=== PATIENT | female | born 1955 | race Caucasian/White ===

== ENCOUNTER 2019-04-08 18:21 | Inpatient (IN) ==
[2019-04-08] MEDS ORDERED: METOCLOPRAMIDE HCL 5 MG/ML VIAL IV ONE (18:41)
[2019-04-08] MEDS ORDERED: NORMAL SALINE 1,000 ML IV ONE (18:41)
[2019-04-08] MEDS ORDERED: MORPHINE SULFATE 4 MG/ML SYRG IV ONE (18:43)
[2019-04-08] MEDS ORDERED: HYDROmorphone HCL 1 MG/ML DISP.SYRIN IV ONE (19:03)
[2019-04-08 19:18] LABS: Hematocrit 27.7 % (37.0-47.0); Hemoglobin 9.4 gm/dL (12.5-16.0); Mean Cell Volume 87.4 fl (78-100); Mean Corpuscular Hemoglobin 29.7 pg (27-31); Mean Corpuscular Hgb Conc 33.9 g/dl (32-36); Mean Platelet Volume 7.8 fl (8-12.5); Neutrophil # 5.4 K/mm3 (1.3-6.0); Neutrophil % 76.6 % (42-75.0); Platelet Count 379 K/mm3 (150-450); Red Blood Count 3.17 M/mm3 (4.2-5.4); White Blood Count 7.1 K/mm3 (4.0-10.5)
--- NOTE | 2019-04-08 19:18 | ERNOTE ---
Abdominal HPI - Narrative Date of Service: 04/08/19 - General Chief Complaint: Abdominal Pain Time Seen by Provider: 04/08/19 18:34 Source: patient, family, RN notes reviewed Exam Limitations: no limitations - Immun/Allergies/Home Medications Immunizatons: IMMUNIZATION HX Immunizations Up to Date No History of Influenza Vaccine No Hx Pneumococcal Vaccination No Allergies/Adverse Reactions: Allergies meloxicam Allergy (Verified 10/08/15 09:16) codeine Adverse Reaction (Mild, Verified 04/08/19 18:43) Vomiting Home Medications: HOME MEDICATIONS Levothyroxine Sodium [Synthroid] 88 mcg PO DAILY 10/08/15 [Last Taken Unknown] Ondansetron [Zofran Odt] 4 mg PO Q6H PRN 04/08/19 [Last Taken Unknown] Prochlorperazine Maleate [Compazine] 10 mg PO QID PRN 04/08/19 [Last Taken Unknown] - History of Present Illness Narrative: Madhavi is a 63 year old female brought to the ED by her for abdominal pain. This began this morning. She has ovarian cancer and is on chemotherapy. She believes her pain is due to constipation caused by the Zofran she had been taking for nausea. She took a laxative this morning and passed a few small, hard pieces of stool. She has not been vomiting but has had very little oral intake. Timing: constant Quality: severe, cramping Activities at Onset: none Associated Symptoms: Present: nausea. Absent: back pain, fever/chills, vomiting Prior Abdominal Problems: Present: similar symptoms Prior Treatment: Absent: recently seen Review of Systems - Review of Systems Constitutional: Present: malaise. Absent: fever, chills EYE: Present: no symptoms reported ENT: Present: no symptoms reported Respiratory: Absent: shortness of breath, cough Cardiology: Absent: chest pain, syncope Gastrointestinal/Abdominal: Present: nausea, constipation, abdominal pain, eating less, drinking less. Absent: vomiting, diarrhea Genitourinary: Present: decreased urinary output. Absent: dysuria Musculoskeletal: Absent: muscle pain, joint pain Skin: Absent: rash, lesions Neurological: Absent: headache, dizziness/light-headedness Endocrine: Present: no symptoms reported Hematologic/Lymphatic: Absent: easy bruising, easy bleeding Psych: Present: no symptoms reported Medical History (Last Reviewed 04/08/19 @ 21:52 by Ana Arita NP) Ovarian cancer Surgical History: Surgical History (Last Reviewed 04/08/19 @ 21:52 by Ana Arita NP) Hx of hysterectomy Hx of thyroidectomy Social History: (Last Reviewed 04/08/19 @ 21:52 by Ana Arita NP) Social History: adopted: No lives independently: Yes household members: spouse number of children: 2 caregiver/support person: Yes parent marital status: Tobacco: Smoking Status: Never smoker Alcohol: alcohol intake: never Physical Exam - Physical Exam General Appearance: Present: alert, moderate distress, thin Head Exam: Present: normal inspection Eye Exam: Normal inspection: bilateral Respiratory: Present: no respiratory distress, normal breath sounds, no accessory muscle use, lungs clear Cardiovascular/Chest: Present: regular rate, rhythm, no murmur, normal peripheral pulses Gastrointestinal/Abdominal: Present: normal bowel sounds, soft, tenderness - diffuse, moderate, distended - bloated appearing. Absent: mass Back Exam: Present: normal inspection, normal range of motion, no vertebral tenderness Extremity Exam: Present: normal inspection, normal range of motion Neurological Exam: Present: alert, oriented, normal mood/affect, no motor/sensory deficits Skin Exam: Present: warm/dry, pallor Progress - Results and Orders Patient's Lab Results:: I have reviewed the patient's lab results. - Vital Signs Patient's Vital Signs:: I have reviewed the patient's vital signs. Vital Signs: Vital Signs 04/08/19 18:26 Temperature 36.3 C Pulse Rate 90 Respiratory Rate 20 Blood Pressure 161/84 H O2 Sat by Pulse Oximetry 98 - X-Ray X-Ray #1 X-Ray: abdomen Interpretation: Interp. by me X-ray Comments: Stool retention noted with large amounts of gas, no air in rectum, suspicious for obstruction - Progress/Reassessment Chief Complaint: Abdominal Pain Progress:: Improved - Transfer of Care Physician Sign Out: Ana Arita Receiving Physician: Aaliyah Tirado Pending Results: CT/MRI results Expected Disposition: Admit Departure Clinical Impression: Abdominal pain Qualifiers: Abdominal location: generalized Qualified Code(s): R10.84 - Generalized abdominal pain - Departure Disposition: Still a patient Condition: Fair Referrals: Shahrzad Ramirez MD [Primary Care Provider] -
[2019-04-08 19:30] LABS: Anion Gap 13.3 mmol/L (6.8-13.8); BUN/Creatinine Ratio 28.2 (9.0-21.6); Bilirubin, Total 0.3 mg/dL (0.0-1.1); Calcium * 8.5 mg/dL (7.9-10.9); Carbon Dioxide 25.6 mmol/L (24-32.6); Potassium 3.9 mmol/L (3.4-4.6); Total Protein 7.2 gm/dL (6.2-8.2)
[2019-04-08] MEDS ORDERED: ONDANSETRON HCL/PF 2 MG/ML VIAL IV ONE (19:59)
[2019-04-08] MEDS ORDERED: DIATRIZOATE MEGLUMINE, SODIUM 30 ML BTL PO ONE (20:26)
--- NOTE | 2019-04-08 23:35 | ERNOTE ---
Abdominal HPI - Narrative Date of Service: 04/08/19 - General Chief Complaint: Abdominal Pain Time Seen by Provider: 04/08/19 18:34 Source: patient, family - Immun/Allergies/Home Medications Immunizatons: IMMUNIZATION HX Immunizations Up to Date No History of Influenza Vaccine No Hx Pneumococcal Vaccination No Allergies/Adverse Reactions: Allergies meloxicam Allergy (Verified 10/08/15 09:16) codeine Adverse Reaction (Mild, Verified 04/08/19 18:43) Vomiting Home Medications: HOME MEDICATIONS Levothyroxine Sodium [Synthroid] 88 mcg PO DAILY 10/08/15 [Last Taken Unknown] Ondansetron [Zofran Odt] 4 mg PO Q6H PRN 04/08/19 [Last Taken Unknown] Prochlorperazine Maleate [Compazine] 10 mg PO QID PRN 04/08/19 [Last Taken Unknown] - History of Present Illness Narrative: assumed pt care at 11pm. pt has had morphine and dilauded for pain. reports improved pain control at this point. she states however, that she is worried that it will come back since it has been unrelenting. she is not yet passing gas and has not had any bms. Timing: getting worse, intermittent Review of Systems - Narrative Narrative: see original note ros Medical History (Last Reviewed 04/08/19 @ 21:52 by Ana Arita NP) Ovarian cancer Surgical History: Surgical History (Last Reviewed 04/08/19 @ 21:52 by Ana Arita NP) Hx of hysterectomy Hx of thyroidectomy Social History: (Last Reviewed 04/08/19 @ 21:52 by Ana Arita NP) Social History: adopted: No lives independently: Yes household members: spouse number of children: 2 caregiver/support person: Yes parent marital status: Tobacco: Smoking Status: Never smoker Alcohol: alcohol intake: never Progress - Results and Orders Patient's Lab Results:: I have reviewed the patient's lab results. Results and Orders: Laboratory Tests 04/08/19 04/08/19 19:10 19:10 WBC 7.1 Hgb 9.4 L Hct 27.7 L Plt Count 379 Sodium 129 L Potassium 3.9 Chloride 94 L BUN 22 Creatinine 0.78 AST 29 ALT 16 L Alkaline Phosphatase 301 H - Vital Signs Patient's Vital Signs:: I have reviewed the patient's vital signs. Vital Signs: Vital Signs 04/08/19 18:26 04/08/19 19:14 04/08/19 19:28 Temperature 36.3 C Pulse Rate 90 88 84 Respiratory Rate 20 16 16 Blood Pressure 161/84 H 146/78 154/81 H O2 Sat by Pulse Oximetry 98 94 98 04/08/19 19:43 04/08/19 20:22 04/08/19 20:58 Temperature Pulse Rate 87 90 82 Respiratory Rate 16 16 18 Blood Pressure 149/75 162/62 H 152/77 H O2 Sat by Pulse Oximetry 100 96 98 04/08/19 21:18 04/08/19 22:37 04/08/19 23:09 Temperature Pulse Rate 84 84 82 Respiratory Rate 18 18 18 Blood Pressure 151/78 H 152/83 H 147/79 O2 Sat by Pulse Oximetry 97 98 98 - Progress/Reassessment Chief Complaint: Abdominal Pain Progress:: Improved Progress Note-Subjective: 04/08/19 23:32 Had long discussion with general surgeon on-call, Dr. Kaufman due to some of the findings on the CT scan. He felt reassured that this was not a surgical issue, he did look at the films himself and was quite alarmed at the amount of stool present. 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 The white blood cell count is also normal. I then spoke with hospitalist on-call, Dr. Miller. We discussed that the patient is requiring pain medication, primary diagnosis is intractable abdominal pain, severe constipation and ileus. She does not have findings consistent with a bowel obstruction. I recommended that she be admitted for observation and treatment of the constipation and pain. He agreed. He did recommend that enemas be started tonight. He also okayed additional pain medication if needed. I discussed this with the patient and her . Patient is admitted. Orders placed Departure Clinical Impression: Constipation, Obstipation Abdominal pain Qualifiers: Abdominal location: generalized Qualified Code(s): R10.84 - Generalized abdominal pain - Departure Disposition: Still a patient Condition: Fair Referrals: Shahrzad Ramirez MD [Primary Care Provider] -
[2019-04-09] MEDS ORDERED: ONDANSETRON HCL/PF 2 MG/ML VIAL IV PRN (06:39)
[2019-04-09] MEDS ORDERED: BISACODYL 10 MG SUPP.RECT RC ONE (08:44)
--- NOTE | 2019-04-09 08:46 | HP ---
Chief Complaint - Chief Complaint Date of Service: 04/09/19 Time of Service: 08:46 Chief Complaint: abdominal pain History of Present Illness: 63-year-old female with history of ovarian cancer, currently receiving chemotherapy, presented to the ER with intractable abdominal pain with nausea and vomiting. States she has had a bowel movement 5 days. X-ray of her belly showed her to have some dilated small loops of bowel with significant colonic stool retention. CT scan of the belly was negative for bowel obstruction, patient is passing gas. Patient not currently taking any pain medication for her cancer. Patient was admitted for intractable abdominal pain with nausea. Placed under observation. Her vital signs been stable. Labs showed her to be slightly hyponatremic at 129 but otherwise she had a normal white count with no shift. She is also slightly anemic with a hemoglobin of 9.4 and a hematocrit of 27.7. Patient is fairly uncomfortable due to bloating but her belly is not rigid and not sharply painful. Her vital signs are stable and she is afebrile. Medical History (Last Reviewed 04/09/19 @ 00:24 by Tanya Payan RN) Ovarian cancer Surgical History: Surgical History (Last Reviewed 04/09/19 @ 00:24 by Tanya Payan RN) Hx of hysterectomy Hx of thyroidectomy Family History: Family History (Last Updated 04/09/19 @ 00:25 by Tanya Payan RN) Father Hypertension Sister Melanoma Social History: (Last Updated 04/09/19 @ 00:25 by Tanya Payan RN) Social History: adopted: No lives independently: Yes household members: spouse number of children: 2 caregiver/support person: Yes parent marital status: Highest education level completed: some college, no degree Tobacco: Smoking Status: Never smoker Alcohol: alcohol intake: never Substance Use: substance use type: does not use Review Of Systems (GEN) - Review of Systems Generalized/Overall Review: Absent: Weakness, Chills, Fever EENTM: Present: No Symptoms Reported Respiratory: Absent: Cough, Shortness of Breath Cardiac: Absent: Chest Pain, Edema Abdominal: Present: Nausea, Abdominal Pain, Constipation. Absent: Vomiting, Hematemesis, Diarrhea, Melena Genitourinary: Present: No Symptoms Reported Musculoskeletal: Present: No Symptoms Reported Neurological: Present: No Symptoms Reported Skin: Present: No Symptoms Reported Endocrine: Present: No Symptoms Reported Immunizations: IMMUNIZATION HX Immunizations Up to Date No History of Influenza Vaccine No Hx Pneumococcal Vaccination No Allergies/Adverse Reactions: Allergies Allergy/AdvReac Type Severity Reaction Status Date / Time meloxicam Allergy Verified 04/09/19 00:25 codeine AdvReac Mild Vomiting Verified 04/09/19 00:25 Home Medications: HOME MEDICATIONS Levothyroxine Sodium [Synthroid] 100 mcg PO DAILY 04/09/19 [Last Taken Unknown] Exam - Exam Vital Signs: Vital Signs - Last Taken Temp 36.7 C 04/09/19 06:38 Pulse 89 04/09/19 06:38 Resp 20 04/09/19 06:38 BP 161/93 H 04/09/19 06:38 Pulse Ox 97 04/09/19 06:38 Constitutional: Present: Alert, Oriented x3, Cooperative, Mild distress - Abdominal pain ENT Exam: Present: hearing grossly normal, moist mucous membranes. Absent: nasal congestion, nasal drainage Eye Exam: bilateral eye: normal inspection, EOMI Neck: Present: non-tender, supple Back Exam: Present: no CVA tenderness, no vertebral tenderness Respiratory: Present: lungs clear, normal breath sounds Cardiovascular/Chest: Present: regular rate, rhythm, no murmur. Absent: edema Abdomen: Present: soft, tender - Right and left lower quadrant. Absent: guarding, rigidity, rebound tenderness Skin Exam: Present: normal color, warm/dry Neurologic: Present: alert, normal mood/affect, oriented x 3 Appearance: Present: appropriate appearance, appropriate insight Eye contact: Present: cooperative, good eye contact, normal speech Thoughts: Present: normal thought pattern, normal mood /affect Diagnostic Studies: Abnormal Lab Results 04/08/19 04/08/19 Range/Units 19:10 19:10 RBC 3.17 L (4.2-5.4) M/mm3 Hgb 9.4 L (12.5-16.0) gm/dL Hct 27.7 L (37.0-47.0) % MPV 7.8 L (8-12.5) fl Neutrophils % 76.6 H (42-75.0) % Lymphocytes % 12.7 L (20-51) % Monocytes % 9.5 H (0.0-9) % Lymphocytes # 0.90 L (1.5-3.5) k/mm3 Sodium 129 L (132-142) mmol/L Chloride 94 L (97-106) mmol/L BUN/Creatinine Ratio 28.2 H (9.0-21.6) Random Glucose 135 H (70-110) mg/dL ALT 16 L (19-67) U/L Alkaline Phosphatase 301 H (50-170) U/L Albumin 3.0 L (3.4-5.0) gm/dl Laboratory Results WBC 7.1 K/mm3 (4.0-10.5) 04/08/19 19:10 RBC 3.17 M/mm3 (4.2-5.4) L 04/08/19 19:10 Hgb 9.4 gm/dL (12.5-16.0) L 04/08/19 19:10 Hct 27.7 % (37.0-47.0) L 04/08/19 19:10 MCV 87.4 fl (78-100) 04/08/19 19:10 MCH 29.7 pg (27-31) 04/08/19 19:10 MCHC 33.9 g/dl (32-36) 04/08/19 19:10 RDW 14.0 % (11.5-14.0) 04/08/19 19:10 Plt Count 379 K/mm3 (150-450) 04/08/19 19:10 MPV 7.8 fl (8-12.5) L 04/08/19 19:10 Immature Gran % (Auto) 0.40 % (0.001-0.429) 04/08/19 19:10 Immature Gran # (Auto) 0.03 K/mm3 (0.000-0.0310) 04/08/19 19:10 Neutrophils % 76.6 % (42-75.0) H 04/08/19 19:10 Lymphocytes % 12.7 % (20-51) L 04/08/19 19:10 Monocytes % 9.5 % (0.0-9) H 04/08/19 19:10 Eosinophils % 0.4 % (0.0-3.0) 04/08/19 19:10 Basophils % 0.4 % (0.0-1.0) 04/08/19 19:10 Nucleated RBC % 0.0 k/mm3 (0-1) 04/08/19 19:10 Neutrophils # 5.4 K/mm3 (1.3-6.0) 04/08/19 19:10 Lymphocytes # 0.90 k/mm3 (1.5-3.5) L 04/08/19 19:10 Monocytes # 0.7 k/mm3 (0.0-1.0) 04/08/19 19:10 Eosinophils # 0.0 k/mm3 (0.0-0.7) 04/08/19 19:10 Absolute Basophils 0.0 k/mm3 (0.0-0.1) 04/08/19 19:10 Sodium 129 mmol/L (132-142) L 04/08/19 19:10 Plasma Sodium 130 mmol/L (130-142) 04/08/19 19:10 Potassium 3.9 mmol/L (3.4-4.6) 04/08/19 19:10 Chloride 94 mmol/L (97-106) L 04/08/19 19:10 Carbon Dioxide 25.6 mmol/L (24-32.6) 04/08/19 19:10 Anion Gap 13.3 mmol/L (6.8-13.8) 04/08/19 19:10 BUN 22 mg/dL (3-23) 04/08/19 19:10 Creatinine 0.78 mg/dL (0.4-1.4) 04/08/19 19:10 Est GFR (Non-Af Amer) 79 mL/min (60-130) D 04/08/19 19:10 BUN/Creatinine Ratio 28.2 (9.0-21.6) H 04/08/19 19:10 Random Glucose 135 mg/dL (70-110) H 04/08/19 19:10 Calcium 8.5 mg/dL (7.9-10.9) 04/08/19 19:10 Calcium Adj for Albumin 9.0 mg/dL (8.4-10.2) 04/08/19 19:10 Total Bilirubin 0.3 mg/dL (0.0-1.1) 04/08/19 19:10 AST 29 U/L (0-48) 04/08/19 19:10 ALT 16 U/L (19-67) L 04/08/19 19:10 Alkaline Phosphatase 301 U/L (50-170) H 04/08/19 19:10 Total Protein 7.2 gm/dL (6.2-8.2) 04/08/19 19:10 Albumin 3.0 gm/dl (3.4-5.0) L 04/08/19 19:10 Assessment/Plan - Narrative Narrative: 63-year-old female with history of ovarian cancer admitted to the floor under observation for constipation with abdominal pain. Patient nauseous and not tolerating p.o. intake. Currently receiving IV fluids which should help with her hyponatremia. Subset enemas ordered as well as CT Phenergan. Will order si methicone to help with some of her bloating. Restarted her levothyroxine for hypothyroidism. Patient has clear liquid diet ordered. No DVT prophylaxis needed at this time. Will encourage ambulation. Recheck lab work in the morning. Nurse will call with questions or concerns. - Assessment/Plan (1) History of ovarian cancer Problem: Acute (2) Abdominal pain Problem: Acute Qualifiers: Abdominal location: generalized Qualified Code(s): R10.84 - Generalized abdominal pain (3) Constipation Problem: Acute
[2019-04-09 09:32] LABS: Anion Gap 10.4 mmol/L (6.8-13.8); BUN/Creatinine Ratio 26.7 (9.0-21.6); Calcium * 8.8 mg/dL (7.9-10.9); Carbon Dioxide 28.4 mmol/L (24-32.6); Estimated Creat Clear 86.2; Potassium 3.8 mmol/L (3.4-4.6)
[2019-04-09] MEDS ORDERED: PROMETHAZINE HCL 12.5 MG SUPP.RECT RC ONE (09:36)
[2019-04-09] MEDS: NORMAL SALINE 1,000 ML IV SCH ×2 (11:23→22:30)
[2019-04-09] MEDS: LEVOTHYROXINE SODIUM 100 MCG TABLET PO SCH (16:39)
[2019-04-09] MEDS ORDERED: PROMETHAZINE HCL 25 MG SUPP.RECT RC ONE (20:03)
[2019-04-09] MEDS ORDERED: SIMETHICONE 80 MG TAB.CHEW PO ONE (20:14)
[2019-04-10] MEDS: SIMETHICONE 80 MG TAB.CHEW PO PRN ×2 (02:29→11:41)
[2019-04-10] MEDS: PROMETHAZINE HCL 25 MG SUPP.RECT RC PRN ×2 (02:30→09:01)
[2019-04-10 06:07] LABS: Anion Gap 11.4 mmol/L (6.8-13.8); BUN/Creatinine Ratio 36.4 (9.0-21.6); Calcium * 8.4 mg/dL (7.9-10.9); Carbon Dioxide 25.4 mmol/L (24-32.6); Estimated Creat Clear 78.4; Potassium 3.8 mmol/L (3.4-4.6)
[2019-04-10] MEDS: LEVOTHYROXINE SODIUM 100 MCG TABLET PO SCH (06:59)
[2019-04-10] MEDS: NORMAL SALINE 1,000 ML IV SCH ×2 (08:49→22:10)
--- NOTE | 2019-04-10 10:56 | PN ---
Subjective - Date and Time Seen Date: 04/10/19 Time: 10:56 Subjective Narrative: Patient continues to have abdominal pain despite bowel rest and multiple suppositories. Repeat abdominal x-ray shows worsening small bowel dilation compared to previous exam though the patient is passing gas and has had a few small bowel movements. Patient has mildly elevated blood pressures though likely due to pain from her belly. She is been afebrile and the rest of her vitals are stable. Objective - Review of Systems Generalized/Overall Review: Denies: Weakness, Chills, Fever EENTM: Reports: No Symptoms Reported Respiratory: Denies: Cough, Shortness of Breath Cardiac: Denies: Chest Pain, Edema, Palpitations Abdominal: Reports: Nausea, Abdominal Pain, Constipation - Improving. Denies: Vomiting Genitourinary Symptoms: Reports: No Symptoms Reported Musculoskeletal Complaints: Reports: No Symptoms Reported Neurological: Reports: No Symptoms Reported Skin: Reports: No Symptoms Reported Endocrine: Reports: No Symptoms Reported - Vitals Vitals: Last Vital Signs Temp 36.9 C 04/10/19 06:54 Pulse 95 04/10/19 06:54 Resp 16 04/10/19 06:54 BP 171/98 H 04/10/19 06:54 Pulse Ox 97 04/10/19 06:54 - Abnormal Lab Findings Abnormal Lab Findings: Abnormal Lab Results 04/10/19 Range/Units 05:55 Sodium 124 L (132-142) mmol/L Plasma Sodium 124 L (130-142) mmol/L Chloride 91 L (97-106) mmol/L BUN 24 H (3-23) mg/dL BUN/Creatinine Ratio 36.4 H (9.0-21.6) - Exam Constitutional: Present: Alert, Oriented x3, Cooperative ENT Exam: Present: hearing grossly normal. Absent: nasal congestion, nasal drainage Neck: Present: non-tender, supple Respiratory: Present: lungs clear, normal breath sounds Cardiovascular/Chest: Present: normal peripheral pulses, regular rate, rhythm, no murmur Abdomen: Present: soft, tender, guarding, hypoactive. Absent: rebound tenderness - 90 1 Skin Exam: Present: normal color, warm/dry - Exam no Appearance: Present: appropriate appearance, appropriate insight Thoughts: Present: normal thought pattern, normal mood /affect Assessment/Plan Plan Narrative: Patient is noticed tender in her abdomen is not as firm as it was a day prior fo llowing 2 loose stools. Patient is also starting to pass gas. Repeat x-ray though did show worsening dilated small loops of bowel. We will go ahead and insert in the nasogastric tube set to intermittent suction to help with this on the pressure from the top end. Continue normal saline. Patient now currently n.p.o. but she can have ice chips. We will see how she feels tomorrow, I think she is improving though from a clinical standpoint and I doubt will need a general surgery consult. If she does not show significant improvement tomorrow then will talk to Dr. Arguelles about her case. Hyponatremia is unchanged even with fluid restriction and normal saline. We will provide some salt tablets to be taken prior to NG tube use. Repeat BMP in the morning. Elevated blood pressure likely due to abdominal pain, patient does not have a history of hypertension. Will provide hydralazine 10 mg IV every 6 hours as needed with systolic greater than 160. Continue levothyroxine for hypothyroidism. SCDs now to be worn while in bed though encourage ambulation. Patient is in agreement treatment plan. Nurse to call questions or concerns. - Problems/Diagnosis (1) SBO (small bowel obstruction) Problem: Acute (2) Abdominal pain Problem: Acute Qualifiers: Abdominal location: generalized Qualified Code(s): R10.84 - Generalized abdominal pain (3) Constipation Problem: Acute (4) History of ovarian cancer Problem: Acute
[2019-04-10] MEDS: SODIUM CHLORIDE 1 GM TABLET PO SCH (11:41)
[2019-04-10] MEDS: HYDROmorphone HCL 1 MG/ML DISP.SYRIN IV PRN ×3 (11:49→20:07)
[2019-04-10] MEDS ORDERED: hydrALAZINE HCL 20 MG/ML VIAL IV PRN (12:21)
[2019-04-10] MEDS ORDERED: PHENOL 180 SPRAY BTL MM PRN (19:29)
[2019-04-10] MEDS: DEXTROSE 5%-NORMAL SALINE 1,000 ML IV PRN (19:35)
[2019-04-10] MEDS: hydrALAZINE HCL 20 MG/ML VIAL IV PRN (19:59)
[2019-04-11] MEDS: HYDROmorphone HCL 1 MG/ML DISP.SYRIN IV PRN ×3 (02:42→15:23)
[2019-04-11] MEDS: hydrALAZINE HCL 20 MG/ML VIAL IV PRN ×2 (02:43→11:01)
[2019-04-11] MEDS: DEXTROSE 5%-NORMAL SALINE 1,000 ML IV PRN (05:35)
[2019-04-11] MEDS: LEVOTHYROXINE SODIUM 100 MCG TABLET PO SCH (08:08)
[2019-04-11] MEDS: SODIUM CHLORIDE 1 GM TABLET PO SCH (08:08)
[2019-04-11] MEDS ORDERED: DIATRIZOATE MEGLUMINE, SODIUM 30 ML BTL NG ONE (08:26)
[2019-04-11 08:56] LABS: Anion Gap 11.2 mmol/L (6.8-13.8); BUN/Creatinine Ratio 47.1 (9.0-21.6); Calcium * 8.1 mg/dL (7.9-10.9); Estimated Creat Clear 101.4; Potassium 3.2 mmol/L (3.4-4.6)
[2019-04-11] MEDS: SIMETHICONE 80 MG TAB.CHEW PO PRN (13:34)
--- NOTE | 2019-04-11 16:27 | DS ---
Transfer Discharge Summary - Diagnosis(s)/Problems (1) SBO (small bowel obstruction) Problem: Acute (2) Abdominal pain Problem: Acute (3) Constipation Problem: Acute (4) History of ovarian cancer Problem: Acute - Course Description of Stay: 63-year-old female with history of ovarian cancer presented to the ER on 04/08/2019 for abdominal pain today, abdominal x-ray shows significant stool retention. Initial CT scan showed compressed appearance of the cecum in the right lower quadrant. Cecal torsion, or possible internal hernia could have this appearance. However, there is no resultant bowel obstruction. General surgery was consulted from the ER who thought that the pain was likely due to the impaction and she is admitted for observation with fluids and enemas. Patient had multiple bowel movements while here but abdominal pain did not resolve. Repeat KUB on 04/10/2019 showed worsening dilation of small loops of bowel more concerning for small bowel obstruction. NG tube was placed at that point and sit to intermittent suction. Patient had roughly 250 cc of gastric content removed over 12 hours. Pain continued to worsen. Repeat CT scan of her belly today showed IMPRESSION: 1. Interval development of findings suggestive of partial small bowel obstruction, with transition point in the right lower quadrant, with abnormal location and appearance of the ileocolic region mesenteric as above, concerning for possible internal hernia. 2. Interval development of mild ascites and free fluid in the pelvis. 3. Area of low density in the left hepatic lobe, somewhat nonspecific but concerning for possible localized area of edema versus potential hepatic metastatic disease versus possible infiltrating tumor such as cholangiocarcinoma and less likely hepatocellular carcinoma. 4. Low-density lesions of the body and tail of the pancreas, stable. Could represent volume averaging from adjacent fluid within the lesser sac versus possible pancreatic cystic neoplasm. 5. Left adrenal lesion concerning for metastatic disease. 6. Retroperitoneal lymphadenopathy with enlarged periaortic lymph nodes as above. Nonspecific edema/thickening of the left anterior pararenal fascia and edema adjacent to the left psoas muscle. Potential infiltrating neoplasm/metastatic disease cannot be entirely excluded and should be considered clinically. 7. Radiodensity within the gallbladder likely vicarious excretion of previously administered contrast material. Pericholecystic fluid is likely related to underlying ascites but clinical correlation for gallbladder pathology is still recommended. 8. Periportal edema versus mild intrahepatic ductal dilation. Again case was discussed with general surgery who Thought it best that she be transferred to a higher level of care facility, likely [facility] where she is getting her cancer treatment for ovarian cancer. Vital signs were stable while here though her blood pressure was slightly elevated at times and she was given as needed hydralazine for this. Otherwise she is been afebrile. Initial white count was 7.1. Rechecking this afternoon before discharge though this does not look like infectious in nature. Patient was accepted by the [facility] with Dr. Camejo of [facility] rn gynecology/onc. Procedures Performed: none - Results and Findings Results and Findings: Laboratory Results - last 24 hr 04/11/19 08:32 Sodium 129 L Plasma Sodium 129 L Potassium 3.2 L Chloride 94 L Carbon Dioxide 27.0 Anion Gap 11.2 BUN 24 H Creatinine 0.51 Est GFR (Non-Af Amer) 129 D BUN/Creatinine Ratio 47.1 H Random Glucose 129 H Calcium 8.1 - Medications Medications: Active Medications Hydralazine HCl (Apresoline) 10 mg IV Q4H PRN PRN Reason: Hypertension Stop: 05/10/19 12:22 Last Admin: 04/11/19 11:01 Dose: 10 mg Documented by: Hydromorphone HCl (Dilaudid) 0.5 mg IV Q4H PRN PRN Reason: Pain Stop: 05/08/19 23:39 Last Admin: 04/11/19 15:23 Dose: 0.5 mg Documented by: Levothyroxine Sodium (Synthroid) 100 mcg PO DAILY@0700 JACK Stop: 05/09/19 09:01 Last Admin: 04/11/19 08:08 Dose: 100 mcg Documented by: Ondansetron HCl (Zofran) 4 mg IV Q6H PRN PRN Reason: Nausea And Vomiting Stop: 05/09/19 06:40 Last Admin: 04/09/19 07:02 Dose: 4 mg Documented by: Phenol/Menthol (Chloraseptic) 1 spray MM PRN PRN PRN Reason: Sore Throat Stop: 05/10/19 19:30 Last Admin: 04/10/19 19:57 Dose: 1 spray Documented by: Promethazine HCl (Phenergan Suppository) 25 mg RC Q6H PRN PRN Reason: nausea/vomiting Stop: 05/10/19 01:56 Last Admin: 04/10/19 09:01 Dose: 25 mg Documented by: Simethicone (Mylicon Chewable Tablets) 80 mg PO Q6H PRN PRN Reason: Indigestion Stop: 05/10/19 01:55 Last Admin: 04/11/19 13:34 Dose: 80 mg Documented by: Sodium Chloride (Sodium Chloride) 1 gm PO DAILY JACK Stop: 05/10/19 11:01 Last Admin: 04/11/19 08:08 Dose: 1 gm Documented by: Discontinued Medications Bisacodyl (Dulcolax Suppository) 10 mg RC ONCE ONE Stop: 04/09/19 08:45 Last Admin: 04/09/19 09:56 Dose: 10 mg Documented by: Diatrizoate Meglum/Diatrizoate Sod (Gastrografin Solution) 60 ml PO ONCE ONE Stop: 04/08/19 20:27 Last Admin: 04/08/19 20:38 Dose: 60 ml Documented by: Diatrizoate Meglum/Diatrizoate Sod (Gastrografin Solution) 60 ml NG ONCE ONE Stop: 04/11/19 08:27 Last Admin: 04/11/19 08:43 Dose: 60 ml Documented by: Hydralazine HCl (Apresoline) 10 mg IV Q6H PRN PRN Reason: Hypertension Stop: 05/10/19 12:22 Last Admin: 04/10/19 15:20 Dose: 10 mg Documented by: Hydromorphone HCl (Dilaudid) 1 mg IV ONCE ONE Stop: 04/08/19 19:04 Last Admin: 04/08/19 19:06 Dose: 1 mg Documented by: Sodium Chloride (Sodium Chloride 0.9%) 1,000 mls @ 999 mls/hr IV .Q1H1M ONE Stop: 04/08/19 19:41 Last Infusion: 04/08/19 19:56 Dose: Infused Documented by: Sodium Chloride (Sodium Chloride 0.9%) 1,000 mls @ 100 mls/hr IV .Q10H JACK Stop: 05/09/19 10:46 Last Admin: 04/10/19 22:10 Dose: Not Given Documented by: Dextrose/Sodium Chloride (Dextrose 5%-0.9% Ns) 1,000 mls @ 100 mls/hr IV .Q10H PRN PRN Reason: HYDRATION Stop: 05/10/19 19:30 Last Infusion: 04/11/19 14:41 Dose: Infused Documented by: Metoclopramide HCl (Reglan) 10 mg IV ONCE ONE Stop: 04/08/19 18:42 Last Admin: 04/08/19 18:52 Dose: 10 mg Documented by: Morphine Sulfate (Morphine Sulfate) 4 mg IV ONCE ONE Stop: 04/08/19 18:44 Last Admin: 04/08/19 18:54 Dose: 4 mg Documented by: Ondansetron HCl (Zofran) 4 mg IV ONCE ONE Stop: 04/08/19 20:00 Last Admin: 04/08/19 20:01 Dose: 4 mg Documented by: Promethazine HCl (Phenergan Suppository) 12.5 mg RC ONCE ONE Stop: 04/09/19 09:37 Last Admin: 04/09/19 09:55 Dose: 12.5 mg Documented by: Promethazine HCl (Phenergan Suppository) 25 mg RC ONCE ONE Stop: 04/09/19 20:04 Last Admin: 04/09/19 20:45 Dose: 25 mg Documented by: Simethicone (Mylicon Chewable Tablets) 80 mg PO ONCE ONE Stop: 04/09/19 20:15 Last Admin: 04/09/19 20:45 Dose: 80 mg Documented by: - Disposition Disposition: Short Term Hospital Inpatient Condition: Serious Discharge Date: 04/11/19 Discharge Time: 16:27
[2019-04-11 16:29] LABS: Hematocrit 31.8 % (37.0-47.0); Mean Cell Volume 86.2 fl (78-100); Mean Corpuscular Hemoglobin 29.8 pg (27-31); Mean Corpuscular Hgb Conc 34.6 g/dl (32-36); Mean Platelet Volume 7.6 fl (8-12.5); Neutrophil # 4.4 K/mm3 (1.3-6.0); Neutrophil % 79.6 % (42-75.0); Platelet Count 456 K/mm3 (150-450); Red Blood Count 3.69 M/mm3 (4.2-5.4); Red Cell Distribution Width 14.4 % (11.5-14.0); White Blood Count 5.6 K/mm3 (4.0-10.5)
[2019-04-11 17:27] VITALS: BP 146/89
== END 2019-04-11 17:30 | disposition short-term general hospital (02) | DRG 389 ==
LOC: MS 18:21 → ER 18:21 → MS 04-09
PROVIDERS: ADMIT Family Medicine; ATTEND Family Medicine
CPT/HCPCS: 36415; 71010; 71045; 74000; 74018; 74019; 74020; 74177; 80048; 80053; 85025; 96361; 96374; 96375; 96376; 99285; G0378; J2405; Q9963; Q9967

== ENCOUNTER 2019-05-18 15:25 | Observation (INO) ==
[2019-05-18 16:19] LABS: Prothrombin Time (Patient) 11.4 Seconds (9.1-10.7)
[2019-05-18 16:20] LABS: INR 1.16 INR (0.92-1.08)
[2019-05-18] MEDS ORDERED: NORMAL SALINE 1,000 ML IV ONE (16:25)
[2019-05-18 16:41] LABS: Amylase * 84 U/L (25-115); Lipase 290 U/L (73-393)
[2019-05-18] MEDS ORDERED: cefTRIAXone SODIUM 1,000 MG/100 ML BAG IV ONE (17:36)
--- NOTE | 2019-05-18 18:13 | ERNOTE ---
Medical Problem HPI - Narrative Date of Service: 05/18/19 - General Chief Complaint: General Assessment Time Seen by Provider: 05/18/19 15:55 Source: patient, family, RN notes reviewed, old records Exam Limitations: no limitations - Immun/Allergies/Home Medications Immunizations: IMMUNIZATION HX Immunizations Up to Date Yes History of Influenza Vaccine No Hx Pneumococcal Vaccination No Allergies/Adverse Reactions: Allergies meloxicam Allergy (Verified 05/18/19 15:50) codeine Adverse Reaction (Mild, Verified 05/18/19 15:50) Vomiting Home Medications: HOME MEDICATIONS Levothyroxine Sodium [Synthroid] 100 mcg PO DAILY 04/09/19 [Last Taken Unknown] Azithromycin 250 mg PO DAILY 05/18/19 [Last Taken Unknown] Lisinopril [Prinivil] 5 mg PO DAILY 05/18/19 [Last Taken Unknown] - History of Present History Narrative: Madhavi is a 63 year old female brought to the ED by her for hyponatremia. She was contacted by her oncologist's office and informed that her sodium was 120 when it was checked earlier today and that she needed to come in to have this treated. She has also had a cough for the past couple of weeks. She was started on Zithromax yesterday. She is being treated for ovarian cancer. Her chemotherapy has been on hold for the past month while she is recovering from a bowel resection for an obstruction secondary to an internal hernia. This was done on 04/12/19 at [facility]. She was also found to have metastasis to her liver at that time. She has not felt well since her surgery. She has been having difficulty making herself eat and frequently has dry heaves. Her labs from earlier today also show a severe decline in her hepatic function. This has been normal until now. She was noted to be severely jaundiced in triage. Her had not noticed this but states he is color blind. Review of Systems - Review of Systems Constitutional: Present: recent illness, fatigue, malaise. Absent: fever, chills EYE: Present: no symptoms reported ENT: Absent: nose congestion, sore throat Respiratory: Present: shortness of breath, cough. Absent: wheezing Cardiology: Absent: chest pain, syncope Gastrointestinal/Abdominal: Present: nausea, eating less. Absent: vomiting, diarrhea, constipation, abdominal pain, drinking less Genitourinary: Present: other - dark urine. Absent: dysuria Musculoskeletal: Absent: muscle pain, joint pain Skin: Absent: rash, lesions Neurological: Absent: headache, dizziness/light-headedness Endocrine: Present: no symptoms reported Hematologic/Lymphatic: Absent: easy bruising, easy bleeding Psych: Present: no symptoms reported Medical History (Last Reviewed 05/18/19 @ 18:10 by Ana Arita NP) Ovarian cancer Surgical History: Surgical History (Last Reviewed 05/18/19 @ 18:10 by Ana Arita NP) Hx of hysterectomy Hx of thyroidectomy Family History: Family History (Last Reviewed 05/18/19 @ 18:10 by Ana Airta NP) Father Hypertension Sister Melanoma Social History: (Last Reviewed 05/18/19 @ 18:10 by Ana Arita NP) Social History: adopted: No lives independently: Yes household members: spouse number of children: 2 caregiver/support person: Yes parent marital status: Highest education level completed: some college, no degree Tobacco: Smoking Status: Never smoker Alcohol: alcohol intake: never Substance Use: substance use type: does not use Physical Exam - Physical Exam General Appearance: Present: alert, mild distress, thin Head Exam: Present: normal inspection Eye Exam: Scleral icterus: bilateral Ears, Nose, Throat: Present: normal ENT inspection, normal pharynx Neck: Present: normal inspection, nontender, supple, full range of motion Respiratory: Present: lungs clear, accessory muscle use - mild dyspnea while speaking, decreased breath sounds Cardiovascular/Chest: Present: no murmur, normal peripheral pulses, tachycardia Gastrointestinal/Abdominal: Present: nontender, nondistended, soft Extremity Exam: Present: normal inspection, non-tender, no edema Neurological Exam: Present: alert, oriented, normal mood/affect, no motor/sensory deficits Skin Exam: Present: warm/dry, jaundice Progress - Results and Orders Patient's Lab Results:: I have reviewed the patient's lab results. - Vital Signs Patient's Vital Signs:: I have reviewed the patient's vital signs. Vital Signs: Vital Signs 05/18/19 15:47 Temperature 36.5 C Pulse Rate 115 H Respiratory Rate 14 Blood Pressure 147/87 O2 Sat by Pulse Oximetry 98 - EKG EKG #1 EKG: paraoxymal atrial tachycardia, nonspecific ST T wave changes EKG read: Reviewed by me - X-Ray X-Ray #1 X-Ray: chest Interpretation: Interp. by me X-ray Comments: Questionable right lower lobe consolidation - Progress/Reassessment Chief Complaint: General Assessment Progress:: Unchanged Plan - Plan Plan: Admission initially discussed with Dr. Burgos. She recommended transfer d/t the patient's new liver impairment and cancer treatment. I contacted [facility] ER. They were unable to accept her for transfer at the present time due to bed availabil ity. Dr. Burgos then agreed to admit the patient for treatment of her hypernatremia and pneumonia. The patient is aware that there are not specialists available here to manage her cancer treatment or her hepatic impairment. She has had a liter of IV NS and a gram of IV Rocephin in the ED. Departure Clinical Impression: Acute hyponatremia Hepatic failure Qualifiers: Liver failure chronicity: acute Hepatic coma status: without hepatic coma Qualified Code(s): K72.00 - Acute and subacute hepatic failure without coma Pneumonia Qualifiers: Pneumonia type: due to unspecified organism Laterality: right Lung location: lower lobe of lung Qualified Code(s): J18.9 - Pneumonia, unspecified organism - Departure Disposition: Still a patient Condition: Serious
[2019-05-18] MEDS: NORMAL SALINE 1,000 ML IV PRN (19:38)
--- NOTE | 2019-05-18 20:37 | HP ---
Chief Complaint - Chief Complaint Date of Service: 05/18/19 Time of Service: 20:34 Chief Complaint: abnormal labs prior to chemo History of Present Illness: Patient has PMHx of clear cell ovarian cancer with metastasis, undergoing chemotherapy, recent SIADH, HTN, hypothyroidism. Her most recent treatment was in March. She developed a volvulus requiring surgical repair in April. She had labs drawn earlier today to see if chemo could be resumed tomorrow, but the labs showed hyponatremia with a sodium of 120, elevated alk phos of 3216, elevated transaminases to the 200's, hypoalbuminemia with an albumin of 2.0, proteinuria. Since coming home from surgery last month, she hasn't been able to regain her energy. She has had significant difficulty eating, and has been losing weight. Stools have been grayish in color. Her son thought her skin looked yellow, but she and her didn't notice. She developed a cough, sore throat, and congestion earlier this week, and her oncologist started her on azithromycin. She took her first dose yesterday. Medical History (Last Reviewed 05/18/19 @ 18:10 by Aan Arita NP) Ovarian cancer Surgical History: Surgical History (Last Reviewed 05/18/19 @ 18:10 by Ana Arita NP) Hx of hysterectomy Hx of thyroidectomy Family History: Family History (Last Reviewed 05/18/19 @ 18:10 by Ana Arita NP) Father Hypertension Sister Melanoma Social History: (Last Reviewed 05/18/19 @ 18:10 by Ana Arita NP) Social History: adopted: No lives independently: Yes household members: spouse number of children: 2 caregiver/support person: Yes parent marital status: Highest education level completed: some college, no degree Tobacco: Smoking Status: Never smoker Alcohol: alcohol intake: never Substance Use: substance use type: does not use Review Of Systems (GEN) - Review of Systems Generalized/Overall Review: Present: Weakness, Weight loss EENTM: Present: Throat Pain Respiratory: Present: Cough, Shortness of Breath Cardiac: Absent: Chest Pain, Edema Abdominal: Present: Other - pale stools. Absent: Vomiting, Abdominal Pain Genitourinary: Present: Other - dark urine Musculoskeletal: Present: No Symptoms Reported Neurological: Present: No Symptoms Reported Skin: Present: Other - son noticed yellow skin discoloration Immunizations: IMMUNIZATION HX Immunizations Up to Date Yes History of Influenza Vaccine No Hx Pneumococcal Vaccination No Allergies/Adverse Reactions: Allergies Allergy/AdvReac Type Severity Reaction Status Date / Time meloxicam Allergy Verified 05/18/19 15:50 codeine AdvReac Mild Vomiting Verified 05/18/19 15:50 Home Medications: HOME MEDICATIONS Levothyroxine Sodium [Synthroid] 100 mcg PO DAILY 04/09/19 [Last Taken Unknown] Azithromycin 250 mg PO DAILY 05/18/19 [Last Taken Unknown] Lisinopril [Prinivil] 5 mg PO DAILY 05/18/19 [Last Taken Unknown] Exam - Exam Vital Signs: Vital Signs - Last Taken Temp 37.3 C 05/18/19 19:47 Pulse 106 H 05/18/19 19:47 Resp 20 05/18/19 19:47 BP 148/83 05/18/19 19:47 Pulse Ox 99 05/18/19 19:47 Constitutional: Present: Alert, Oriented x3, Cooperative, Thin and frail Respiratory: Present: lungs clear, normal breath sounds Cardiovascular/Chest: Present: regular rate, rhythm - HR 100 Abdomen: Present: nontender, other - healing surgical incision, several bruises Extremity: Present: lower extremity edema - 1+ bilateral lower legs Skin Exam: Present: jaundice Eye contact: Present: cooperative Diagnostic Studies: Abnormal Lab Results 05/18/19 Range/Units 16:05 PT 11.4 H (9.1-10.7) Seconds INR (Anticoag Therapy) 1.16 H (0.92-1.08) INR Laboratory Results PT 11.4 Seconds (9.1-10.7) H 05/18/19 16:05 INR (Anticoag Therapy) 1.16 INR (0.92-1.08) H 05/18/19 16:05 Ammonia Less than 17.0 mcmol/L (11-35) 05/18/19 16:05 Amylase 84 U/L (25-115) 05/18/19 16:24 Lipase 290 U/L (73-393) 05/18/19 16:24 Assessment/Plan - Assessment/Plan (1) Acute hyponatremia Assessment: Sodium of 120. Her sodium level on DC from the [facility] was 126 on 04/29. SIADH was listed in her DC diagnoses. She reports being told to limit her water intake, and was given sodium tablets that she tried, but could not tolerate. Will administer NS overnight, and recheck in the morning. Problem: Acute (2) Hepatic failure Assessment: She had some biliary dilation on CT done last month. Elevated alk phos of 3219, AST of 206, ALT of 228, bilirubin of 9.1, and she is jaundiced on exam. Her platelets are elevated, and INR is 1.16. `Will call her oncologist tomorrow for recommendations regarding treatment. I suspect her cancer may have progressed to the point where recovery is not a reasonable option to expect. Problem: Acute Qualifiers: Liver failure chronicity: acute Hepatic coma status: without hepatic coma Qualified Code(s): K72.00 - Acute and subacute hepatic failure without coma (3) Ovarian cancer Assessment: Patient has a malignant neoplasm of her right ovary, clear cell, per [facility] records. She has bilateral pleural effusions, which were present last month per [facility] notes. She's been unable to have chemotherapy for approximately [address] done at the [facility] show progression of disease last month. She has been losing weight, and unable to maintain nutrition. Will check Mg and Phos in the morning. She developed lactose intolerance over the last few months. Will add clear Ensure to meals. Will call her oncologist in the morning for further recommendations. Problem: Acute (4) Metastasis Assessment: Notes from the [facility] state metastasis around the pancreas and wil hepatis. Problem: Acute (5) Jaundice Problem: Acute (6) Thrombocytosis Assessment: Possible secondary to liver metastasis. Problem: Acute (7) Hyperbilirubinemia Assessment: Bilirubin is 9.2, and was normal in April. Problem: Acute (8) Upper respiratory infection Assessment: WBC mildly elevated at 13.8. will continue her azithromycin, today is day #2 of 5. She was also given rocephin in the ED. If no improvement, will add cefdinir. Problem: Acute (9) History of endometrial cancer Problem: Acute (10) History of DVT (deep vein thrombosis) Assessment: She was anticoagulated with lovenox after her surgery, and reports having about 3 doses left. She'd like to stop taking it. She is aware she is at risk for clotting, with cancer and previous DVT. Problem: Chronic
[2019-05-19] MEDS: guaiFENesin/DEXTROMETHORPHAN SYRUP PO PRN ×3 (02:29→21:09)
[2019-05-19] MEDS: NORMAL SALINE 1,000 ML IV PRN ×3 (03:42→19:45)
[2019-05-19 06:33] LABS: Hematocrit 25.1 % (37.0-47.0); Hemoglobin 8.9 gm/dL (12.5-16.0); Mean Cell Volume 85.1 fl (78-100); Mean Corpuscular Hemoglobin 30.2 pg (27-31); Mean Corpuscular Hgb Conc 35.5 g/dl (32-36); Neutrophil % 81.7 % (42-75.0); Platelet Count 549 K/mm3 (150-450); Red Blood Count 2.95 M/mm3 (4.2-5.4); Red Cell Distribution Width 15.6 % (11.5-14.0); White Blood Count 12.2 K/mm3 (4.0-10.5)
[2019-05-19 06:55] LABS: Albumin * 1.7 gm/dl (3.4-5.0); Anion Gap 10.5 mmol/L (6.8-13.8); BUN/Creatinine Ratio 23.4 (9.0-21.6); Ca. Corrected For Albumin 8.9 mg/dL (8.4-10.2); Calcium * 7.4 mg/dL (7.9-10.9); Carbon Dioxide 25.2 mmol/L (24-32.6); Magnesium 1.5 mg/dL (1.2-2.8); Phosphorus 2.7 mg/dL (2.2-4.2); Potassium 3.7 mmol/L (3.4-4.6); Total Protein 5.7 gm/dL (6.2-8.2)
[2019-05-19] MEDS: AZITHROMYCIN 250 MG TABLET PO SCH (08:50)
[2019-05-19] MEDS ORDERED: LISINOPRIL 5 MG TABLET PO SCH (09:00)
--- NOTE | 2019-05-19 10:05 | PN ---
Subjective - Date and Time Seen Date: 05/19/19 Time: 09:44 Subjective Narrative: Patient seen while up eating breakfast. She reports having a cough overnight, which is helpful with cough medicine. Discussed her options. She would like to know what her oncologist's opinion is on her current situation. She feels like she is close to just wanting comfort cares. Objective - Vitals Vitals: Last Vital Signs Temp 37.0 C 05/19/19 06:24 Pulse 98 05/19/19 08:49 Resp 20 05/19/19 06:24 BP 152/85 H 05/19/19 08:49 Pulse Ox 97 05/19/19 06:24 - Abnormal Lab Findings Abnormal Lab Findings: Abnormal Lab Results 05/18/19 05/19/19 05/19/19 Range/Units 16:05 06:25 06:25 WBC 12.2 H (4.0-10.5) K/mm3 RBC 2.95 L (4.2-5.4) M/mm3 Hgb 8.9 L (12.5-16.0) gm/dL Hct 25.1 L (37.0-47.0) % RDW 15.6 H (11.5-14.0) % Plt Count 549 H (150-450) K/mm3 Immature Gran % (Auto) 2.00 H (0.001-0.429) % Immature Gran # (Auto) 0.25 H (0.000-0.0310) K/mm3 Neutrophils % 81.7 H (42-75.0) % Lymphocytes % 7.9 L (20-51) % Neutrophils # 10.0 H (1.3-6.0) K/mm3 Lymphocytes # 0.97 L (1.5-3.5) k/mm3 PT 11.4 H (9.1-10.7) Seconds INR (Anticoag Therapy) 1.16 H (0.92-1.08) INR Sodium 123 L (132-142) mmol/L Plasma Sodium 123 L (130-142) mmol/L Chloride 91 L (97-106) mmol/L Est GFR (Non-Af Amer) 142 H D (60-130) mL/min BUN/Creatinine Ratio 23.4 H (9.0-21.6) Calcium 7.4 L (7.9-10.9) mg/dL Total Bilirubin 8.0 H (0.0-1.1) mg/dL Direct Bilirubin (0.0-0.3) mg/dL AST 172 H (0-48) U/L ALT 186 H (19-67) U/L Alkaline Phosphatase 2946 H (50-170) U/L Total Protein 5.7 L (6.2-8.2) gm/dL Albumin 1.7 L (3.4-5.0) gm/dl 05/19/19 Range/Units 06:25 WBC (4.0-10.5) K/mm3 RBC (4.2-5.4) M/mm3 Hgb (12.5-16.0) gm/dL Hct (37.0-47.0) % RDW (11.5-14.0) % Plt Count (150-450) K/mm3 Immature Gran % (Auto) (0.001-0.429) % Immature Gran # (Auto) (0.000-0.0310) K/mm3 Neutrophils % (42-75.0) % Lymphocytes % (20-51) % Neutrophils # (1.3-6.0) K/mm3 Lymphocytes # (1.5-3.5) k/mm3 PT (9.1-10.7) Seconds INR (Anticoag Therapy) (0.92-1.08) INR Sodium (132-142) mmol/L Plasma Sodium (130-142) mmol/L Chloride (97-106) mmol/L Est GFR (Non-Af Amer) (60-130) mL/min BUN/Creatinine Ratio (9.0-21.6) Calcium (7.9-10.9) mg/dL Total Bilirubin (0.0-1.1) mg/dL Direct Bilirubin 7.6 H (0.0-0.3) mg/dL AST (0-48) U/L ALT (19-67) U/L Alkaline Phosphatase (50-170) U/L Total Protein (6.2-8.2) gm/dL Albumin (3.4-5.0) gm/dl Assessment/Plan - Problems/Diagnosis (1) Acute hyponatremia Problem: Acute Narrative: Sodium improved to 123 with normal saline overnight. Sodium was 120 yesterday. [facility] notes state possible SIADH. 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 She was unable to tolerate salt tablets. We will continue to replace with IV. Potential transfer to the [place] for cancer treatment later today. (2) Cholestasis Problem: Acute Narrative: She has elevated alk phos of 2946, elevated direct bilirubin of 7.6. Concern for biliary obstruction. When discussing her options with her, including potential ERCP or stent placement, she feels like this sounds similar to something she was told at the [place] last month. She has had pale stools and dark urine. GGT was high last month. Discussed with her oncologist, who feels like chemo is needed to improve her jaundice. Her INR is 1.16, and her platelets are elevated, so I do not believe she is in active liver failure. [facility] process to the [facility] started last night, but no beds are available. Recommend transfer for potential ERCP and cancer treatment. (3) Ovarian cancer Problem: Acute Narrative: Discussed with her oncologist, and she will need a different chemo regimen that she has been receiving. Has not received chemo since March due to abdominal surgery for volvulus. She has been losing weight, and unable to maintain p.o. nutrition. Briefly discussed potential PEG tube, which she would like to discuss with her . She states she has been dealing with this for over 3 years, and is very tired. She would like to talk with her oncologist, but she is aware that hospice is an option for her. (4) Metastasis Problem: Acute (5) Jaundice Problem: Acute (6) Thrombocytosis Problem: Acute (7) Hyperbilirubinemia Problem: Acute (8) Upper respiratory infection Problem: Acute Narrative: She was started on azithromycin the day prior to admission. Today is day 3. Cough medicine was also started last night. If she does not improve, will add cefdinir. She has been afebrile. (9) History of endometrial cancer Problem: Acute (10) History of DVT (deep vein thrombosis) Problem: Chronic Narrative: She was recently on Lovenox after her surgery. She declines continue treatment with Lovenox, but is aware she is at increased clot risk.
[2019-05-19] MEDS ORDERED: LISINOPRIL 5 MG TABLET PO ONE (13:15)
[2019-05-19] MEDS ORDERED: ACETAMINOPHEN 325 MG TABLET PO PRN (16:51)
[2019-05-19 17:44] LABS: Albumin * 1.8 gm/dl (3.4-5.0); Anion Gap 14.1 mmol/L (6.8-13.8); BUN/Creatinine Ratio 25.6 (9.0-21.6); Bilirubin, Total 9.1 mg/dL (0.0-1.1); Ca. Corrected For Albumin 9.2 mg/dL (8.4-10.2); Calcium * 7.8 mg/dL (7.9-10.9); Carbon Dioxide 22.7 mmol/L (24-32.6); Potassium 3.8 mmol/L (3.4-4.6); Total Protein 6.1 gm/dL (6.2-8.2)
[2019-05-20] MEDS: NORMAL SALINE 1,000 ML IV PRN (03:49)
[2019-05-20 07:02] LABS: Albumin * 1.6 gm/dl (3.4-5.0); Anion Gap 9.4 mmol/L (6.8-13.8); BUN/Creatinine Ratio 22.5 (9.0-21.6); Ca. Corrected For Albumin 9.1 mg/dL (8.4-10.2); Calcium * 7.5 mg/dL (7.9-10.9); Potassium 3.4 mmol/L (3.4-4.6); Total Protein 5.8 gm/dL (6.2-8.2)
[2019-05-20] MEDS ORDERED: SODIUM CHLORIDE 3 % 500 ML IV SCH (07:45)
[2019-05-20] MEDS: AZITHROMYCIN 250 MG TABLET PO SCH (08:54)
[2019-05-20] MEDS ORDERED: LISINOPRIL 10 MG TABLET PO SCH (09:00)
[2019-05-20 13:46] LABS: Albumin * 1.6 gm/dl (3.4-5.0); Anion Gap 13.3 mmol/L (6.8-13.8); BUN/Creatinine Ratio 16.1 (9.0-21.6); Bilirubin, Total 9.2 mg/dL (0.0-1.1); Ca. Corrected For Albumin 9.1 mg/dL (8.4-10.2); Calcium * 7.5 mg/dL (7.9-10.9); Carbon Dioxide 23.2 mmol/L (24-32.6); Potassium 3.5 mmol/L (3.4-4.6); Total Protein 5.7 gm/dL (6.2-8.2)
--- NOTE | 2019-05-20 15:39 | DS ---
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 Her most recent treatment was in March. She developed a volvulus requiring surgical repair in April. She had labs drawn on 05/18 to see if chemo could be resumed, but the labs showed hyponatremia with a sodium of 120, elevated alk phos of 3216, elevated transaminases to the 200's, hypoalbuminemia with an albumin of 2.0, proteinuria. Since coming home from surgery last month, she hasn't been able to regain her energy. She has had significant difficulty eating, and has been losing weight. Stools have been grayish in color. She was jaundiced in appearance. She was admitted to our facility for hyponatremia treatment pending transfer to the [facility]. Transfer process was initiated from the ED, but the [facility] did not have bed availability. Her case was discussed with her oncologist, Dr. Jenkins, who agreed with transfer to initiate treatment for her cholestasis, and change her chemo regimen. It was felt she either needs an ERCP and potential stent placement, or chemo to treat her cholestasis. Her sodium did not improve with NS, and 3% NaCL was started on the morning of 05/20. She was diagnosed with SIADH while at the [facility] last month, and prescribed salt tablets and water restriction, but she was unable to tolerate swallowing the salt tablets. She developed a cough, sore throat, and congestion earlier this week, and her oncologist started her on azithromycin. She took her first dose the day prior to admission. Guaifenesin/dextromethorphan cough syrup was started to help with her cough. She was afebrile during her stay, and her cough improved. She was previously prescribed 5 mg lisinopril, but her BP was elevated, so her dose was increased to 10 mg, with improvement in her BP. She transferred to the [facility] on the evening of 05/20/19. Procedures Performed: none - Results and Findings Results and Findings: Laboratory Results - last 24 hr 05/19/19 05/20/19 05/20/19 17:22 06:26 13:22 Sodium 121 L 119 L 120 L Plasma Sodium 121 L 119 L* 121 L Potassium 3.8 3.4 3.5 Chloride 88 L 87 L 87 L Carbon Dioxide 22.7 L 26.0 23.2 L Anion Gap 14.1 H 9.4 13.3 BUN 11 9 9 Creatinine 0.43 0.40 0.56 Est GFR (Non-Af Amer) 158 H 171 H 116 D BUN/Creatinine Ratio 25.6 H 22.5 H 16.1 Random Glucose 94 88 150 H D Calcium 7.8 L 7.5 L 7.5 L Calcium Adj for Albumin 9.2 9.1 9.1 Total Bilirubin 9.1 H 9.0 H 9.2 H AST 186 H 192 H 192 H ALT 201 H 195 H 199 H Alkaline Phosphatase 3153 H 3048 H 3245 H Total Protein 6.1 L 5.8 L 5.7 L Albumin 1.8 L 1.6 L 1.6 L - Medications Medications: Active Medications Acetaminophen (Tylenol) 325 mg PO Q6H PRN PRN Reason: Mild pain (pain scale 1-3) Stop: 06/18/19 16:52 Last Admin: 05/19/19 17:04 Dose: 325 mg Documented by: Azithromycin (Zithromax) 250 mg PO DAILY [facility]; Protocol Stop: 05/24/19 09:01 Last Admin: 05/20/19 08:54 Dose: 250 mg Documented by: Guaifenesin/Dextromethorphan (Robitussin-Dm) 10 ml PO Q4H PRN PRN Reason: Cough Stop: 06/18/19 02:15 Last Admin: 05/19/19 21:09 Dose: 10 ml Documented by: Sodium Chloride (Hypertonic) (Sodium Chloride 3%) 500 mls @ 30 mls/hr IV .[id number] [facility] Stop: 06/19/19 07:46 Last Admin: 05/20/19 08:54 Dose: 30 mls/hr Documented by: Lisinopril (Zestril) 10 mg PO DAILY [facility] Stop: 06/19/19 09:01 Last Admin: 05/20/19 08:54 Dose: 10 mg Documented by: Discontinued Medications Sodium Chloride (Sodium Chloride 0.9%) 1,000 mls @ 999 mls/hr IV .Q1H1M ONE Stop: 05/18/19 17:25 Last Infusion: 05/18/19 18:27 Dose: Infused Documented by: Ceftriaxone Sodium (Rocephin 1000 Mg Er Piggyback) 1,000 mg in 100 mls @ 200 mls/hr IV ONCE ONE Stop: 05/18/19 18:05 Last Infusion: 05/18/19 18:27 Dose: Infused Documented by: Sodium Chloride (Sodium Chloride 0.9%) 1,000 mls @ 125 mls/hr IV .Q8H PRN PRN Reason: HYDRATION Stop: 06/17/19 19:14 Last Infusion: 05/20/19 08:54 Dose: Infused Documented by: Lisinopril (Zestril) 5 mg PO DAILY [facility] Stop: 06/18/19 09:01 Last Admin: 05/19/19 08:49 Dose: 5 mg Documented by: Lisinopril (Zestril) 5 mg PO ONCE ONE Stop: 05/19/19 13:16 Last Admin: 05/19/19 13:25 Dose: 5 mg Documented by: - Disposition Disposition: Home self-care Condition: Serious Discharge Date: 05/20/19
[2019-05-20 17:14] VITALS: BP 139/92
== END 2019-05-20 17:10 | disposition short-term general hospital (02) ==
LOC: MS 15:25 → ER 15:25 → MS 19:30
PROVIDERS: ADMIT Family Medicine; ATTEND Family Medicine
CPT/HCPCS: 36415; 71020; 71046; 80053; 82140; 82150; 82248; 83690; 83735; 84100; 85025; 85610; 93005; 96365; 99285; G0378